=== PATIENT | male | born 1985 | race African-American/Black ===

== ENCOUNTER 2016-12-25 14:13 | Emergency (ER) | payer BC ==
[~2016-12-25] VITALS: Ht 185.4 cm; Wt 77.1 kg
[~2016-12-25 14:13] MED LIST: CYCL10TA2 PO; ONDA4TAB10 SL
[2016-12-25 17:30] VITALS: BP 143/75
[2016-12-25 17:35] LABS: BILIRUBIN,URINE NEGATIVE (NEG); GLUCOSE,URINE NEGATIVE (NEG); NITRITE,URINE NEGATIVE (NEG); PH,URINE 7.5; PROTEIN,URINE NEGATIVE (NEG-TRACE)
[2016-12-25 17:46] LABS: BASO # 0.1 x10^3/uL (0.0-0.2); BASO % 1 % (0-3); EOS % 2 % (0-3); HEMOGLOBIN 13.1 g/dL (13.0-17.5); LYMPH # 3.1 x10^3/uL (1.0-4.8); LYMPH % 36 % (24-48); MEAN CORPUSCULAR HEMOGLOBIN 30 pg (25-35); MEAN CORPUSCULAR HGB CONC 33 g/dL (31-37); MEAN CORPUSCULAR VOLUME 92 fL (79-100); MONO % 5 % (0-9); NEUT % 56 % (31-73); PLATELET COUNT 191 x10^3/uL (140-400); RED BLOOD COUNT 4.33 x10^6/uL (4.30-5.70); RED CELL DISTRIBUTION WIDTH 14.1 % (11.5-14.5); WHITE BLOOD COUNT 8.5 x10^3/uL (4.0-11.0)
[2016-12-25 17:53] LABS: CALCIUM 9.4 mg/dL (8.5-10.1); CREATININE 0.9 mg/dL (0.7-1.3); GFR 117.6; POTASSIUM 4.2 mmol/L (3.5-5.1)
[2016-12-25 17:59] LABS: ALBUMIN 3.8 g/dL (3.4-5.0); ALBUMIN/GLOBULIN RATIO 0.9 (1.0-1.7); TOTAL BILIRUBIN 0.2 mg/dL (0.2-1.0); TOTAL PROTEIN 7.9 g/dL (6.4-8.2)
[2016-12-25 18:04] LABS: BACTERIA,URINE 0 /HPF (0-FEW); SQUAMOUS EPITHELIAL CELL,UR OCC /LPF
[2016-12-25 18:05] LABS: TRICHOMONAS,URINE PRESENT
[2016-12-25] MEDS ORDERED: DOXY100T PO (18:28)
--- NOTE | 2016-12-25 18:28 | PHYS DOC ---
Past Medical History Past Medical History: No Pertinent History, Bronchitis Additional Past Medical Histor: pt denies any Past Surgical History: No Surgical History Additional Past Surgical Histo: pt denies any Alcohol Use: None Drug Use: None Adult General Chief Complaint Chief Complaint: BLOOD IN URINE HPI HPI Patient is a 31 year old gentleman who presents here today complaining of hematuria and dysuria OLGA-3 morning. Patient also complains of some discomfort in his left flank region. Patient has no history of hypertension diabetes liver kidney or lung problems. Patient reports he does smoke. Occasional alcohol no drugs. Patient ramses he is allergic to penicillin and aspirin. Patient has had no surgeries. Patient denies any fevers shaking chills nausea vomiting diarrhea cough or URI symptoms. Patient denies any penile discharge. Patient reports he does have some blood a discharge that is noticed occasionally. Patient has any testicular pain or abdominal pain. Patient reports he is tolerating by mouth's well. Exam the ER was unremarkable. Patient's abdominal exam is normal. Patient's U exam was normal. Patient is alert awake and oriented 3. Patient's abdomen is soft nontender no rebound or guarding. Patient has some mild tenderness to palpation to his left flank. Patient is resting comfortably watching TV laughing and kidding around with his girlfriend. Patient does not appear to have any discomfort or pain at this time. Patient's workup in the ER was unremarkable. Except for a UA that showed Trichomonas as well as WBCs in his urine. I believe that the hematuria the patient is speaking of his likely drainage from a STD. We will go ahead and give the patient a shot of Rocephin IM, Doxy and Flagyl. Patient be discharged home in stable condition with strict instructions to follow-up with his primary care doctor without department for further reevaluation and management of his hematuria if it continues. Review of Systems Review of Systems Constitutional: Denies fever or chills [] Eyes: Denies change in visual acuity, redness, or eye pain [] HENT: Denies nasal congestion or sore throat [] All other review systems are negative except as documented in the history of present illness portion Allergies Allergies Allergies Coded Allergies Type Severity Reaction Last Updated Verified Penicillins Allergy Intermediate 08/20/15 Yes aspirin Allergy Intermediate 08/20/15 Yes peanut Allergy Intermediate 08/20/15 Yes Physical Exam Physical Exam Constitutional: Well developed, well nourished, no acute distress, non-toxic appearance. [] HENT: Normocephalic, atraumatic, bilateral external ears normal, oropharynx moist, no oral exudates, nose normal. [] Eyes: PERRLA, EOMI, conjunctiva normal, no discharge. [] Neck: Normal range of motion, no tenderness, supple, no stridor. [] Cardiovascular:Heart rate regular rhythm, no murmur [] Lungs & Thorax: Bilateral breath sounds clear to auscultation [] Abdomen: Bowel sounds normal, soft, no tenderness, no masses, no pulsatile masses. [] Skin: Warm, dry, no erythema, no rash. [] Back: Mild tenderness to palpation to his left flank Extremities: No tenderness, no cyanosis, no clubbing, ROM intact, no edema. [] Neurologic: Alert and oriented X 3, normal motor function, normal sensory function, no focal deficits noted. [] Psychologic: Affect normal, judgement normal, mood normal. [] Current Patient Data Vital Signs Vital Signs Date Time Temp Pulse Resp B/P Pulse Ox O2 Delivery O2 Flow Rate FiO2 12/25/16 16:45 98.5 80 22 147/76 99 Room Air 98.5 Lab Values Laboratory Tests Test 12/25/16 15:55 12/25/16 17:34 Urine Color Yellow Urine Clarity Clear Urine pH 7.5 Urine Specific Holl[place] 1.015 Urine Protein Negativemg/dL (NEG-TRACE) Urine Glucose (UA) Negativemg/dL (NEG) Urine Ketones (Stick) Negativemg/dL (NEG) Urine Blood Moderate (NEG) Urine Nitrite Negative (NEG) Urine Bilirubin Negative (NEG) Urine Urobilinogen Dipstick 1.0mg/dL (0.2 mg/dL) Urine Leukocyte Esterase Large (NEG) Urine RBC 1-2/HPF (0-2) Urine WBC 11-20/HPF (0-4) Urine Squamous Epithelial Cells Occ/LPF Urine Bacteria 0/HPF (0-FEW) Urine Mucus Slight/LPF Urine Trichomonas Present White Blood Count 8.5x10^3/uL (4.0-11.0) Red Blood Count 4.33x10^6/uL (4.30-5.70) Hemoglobin 13.1g/dL (13.0-17.5) Hematocrit 40.0% (39.0-53.0) Mean Corpuscular Volume 92fL (79-100) Mean Corpuscular Hemoglobin 30pg (25-35) Mean Corpuscular Hemoglobin Concent 33g/dL (31-37) Red Cell Distribution Width 14.1% (11.5-14.5) Platelet Count 191x10^3/uL (140-400) Neutrophils (%) (Auto) 56% (31-73) Lymphocytes (%) (Auto) 36% (24-48) Monocytes (%) (Auto) 5% (0-9) Eosinophils (%) (Auto) 2% (0-3) Basophils (%) (Auto) 1% (0-3) Neutrophils # (Auto) 4.7x10^3uL (1.8-7.7) Lymphocytes # (Auto) 3.1x10^3/uL (1.0-4.8) Monocytes # (Auto) 0.5x10^3/uL (0.0-1.1) Eosinophils # (Auto) 0.2x10^3/uL (0.0-0.7) Basophils # (Auto) 0.1x10^3/uL (0.0-0.2) Sodium Level 145mmol/L (136-145) Potassium Level 4.2mmol/L (3.5-5.1) Chloride Level 107mmol/L (98-107) Carbon Dioxide Level 28mmol/L (21-32) Anion Gap 10 (6-14) Blood Urea Nitrogen 14mg/dL (8-26) Creatinine 0.9mg/dL (0.7-1.3) Estimated GFR (Cockcroft-Gault) 117.6 BUN/Creatinine Ratio 16 (6-20) Glucose Level 85mg/dL (70-99) Calcium Level 9.4mg/dL (8.5-10.1) Total Bilirubin 0.2mg/dL (0.2-1.0) Aspartate Amino Transferase (AST) 12U/L (15-37) L Alanine Aminotransferase (ALT) 20U/L (16-63) Alkaline Phosphatase 96U/L (46-116) Total Protein 7.9g/dL (6.4-8.2) Albumin 3.8g/dL (3.4-5.0) Albumin/Globulin Ratio 0.9 (1.0-1.7) L Laboratory Tests 12/25/16 17:34 Laboratory Tests 12/25/16 17:34 EKG EKG [] Radiology/Procedures Radiology/Procedures [] Course & Med Decision Making Course & Med Decision Making Pertinent Labs and Imaging studies reviewed. (See chart for details) [] Dragon Disclaimer Dragon Disclaimer This electronic medical record was generated, in whole or in part, using a voice recognition dictation system. Departure Departure Impression: Primary Impression: Trichomonas infection Additional Impressions: STD (male) Hematuria Disposition: 01 HOME, SELF-CARE Condition: IMPROVED Referrals: NO PCP (PCP) Patient Instructions: Hematuria, Adult, Sexually Transmitted Disease, Easy-to- Read, Trichomoniasis Scripts Doxycycline Hyclate 100 Mg Tablet1 Tab PO BID #14 TAB Prov:CANDE BRIGHT MD 12/25/16 Problem Qualifiers CANDE BRIGHT MD Dec 25, 2016 18:28
[2016-12-25] MEDS ORDERED: CEFTRIAXONE IM 250 MG VIAL. IM ONE (18:30)
[2016-12-25] MEDS ORDERED: METRONIDAZOLE 500 MG TABLET. PO ONE (18:30)
== END 2016-12-25 19:20 | disposition home or self-care (01) ==
LOC: ER 14:13
DX: R31.9 Hematuria, unspecified (principal); A64 Unspecified sexually transmitted disease; A59.9 Trichomoniasis, unspecified; Z88.0 Allergy status to penicillin; Z88.6 Allergy status to analgesic agent; Z91.010 Allergy to peanuts
CPT/HCPCS: 36415; 80053; 81001; 85027; 87086; 96372; 99284; J0696

== ENCOUNTER 2017-11-08 17:36 | Emergency (ER) | payer BC | END 2017-11-08 19:08 | disposition home or self-care (01) | LOC: ER 17:36 | DX: M25.562 Pain in left knee (principal); Z88.0 Allergy status to penicillin; Z88.6 Allergy status to analgesic agent; Z91.010 Allergy to peanuts | CPT/HCPCS: 73562; 99284 ==

== ENCOUNTER 2020-04-15 14:10 | Emergency (ER) | payer BC ==
[~2020-04-15] VITALS: Ht 185.4 cm; Wt 86.0 kg
[~2020-04-15 14:10] MED LIST changes: +DOXY100T PO; +TRAM50TA PO
[2020-04-15] MEDS ORDERED: ONDA4TAB12 PO (15:13)
[2020-04-15] MEDS ORDERED: PRED20TA PO (15:13)
[2020-04-15] MEDS ORDERED: DIPH25CA58 PO (15:13)
[2020-04-15] MEDS ORDERED: FAMO-63 PO (15:13)
--- NOTE | 2020-04-15 15:14 | PHYS DOC ---
Past Medical History Past Medical History: Bronchitis Past Surgical History: No Surgical History Smoking Status: Current Every Day Smoker Alcohol Use: None Drug Use: None General Adult EDM: Chief Complaint: ALLERGIC REACTION HPI: HPI: Patient is a 34 year old presents with report of pruritic rash to trunk and extremities and sensation there is "something in his throat "which started yesterday. Patient did have 2 episodes of vomiting yesterday prior to symptoms starting. Denies any known exposure. Denies fever or chills. Denies new medications, soaps, shampoos, detergents, or other allergen exposure. Patient reports he took a Benadryl at noon today. Patient reports symptoms have s omewhat improved but still is having some itching and now with some upper lip swelling. Denies problems breathing or talking. Denies tongue swelling. Review of Systems: Review of Systems: Constitutional: Denies fever or chills Eyes: Denies redness or eye pain HENT: Denies nasal congestion or sore throat; denies tongue swelling; reports left upper lip swelling and sensation of "something in his throat " Respiratory: Denies cough or shortness of breath or wheezing Cardiovascular: Denies chest pain or palpitations GI: Denies abdominal pain; reports nausea and vomiting : Denies dysuria or hematuria Musculoskeletal: Denies back pain or joint pain Integument: Reports rash and itching Neurologic: Denies headache, focal weakness or sensory changes Complete systems were reviewed and found to be within normal limits, except as documented in this note. Current Medications: Current Medications Medications (Trade) Dose Ordered Sig/Norma Start Time Stop Time Status Last Admin Dose Admin Dexamethasone Sodium Phosphate (Decadron) 10 mg 1X ONCE 04/15/20 15:30 04/15/20 15:31 Diphenhydramine HCl (Benadryl) 25 mg 1X ONCE 04/15/20 15:30 04/15/20 15:31 Famotidine (Pepcid) 20 mg 1X ONCE 04/15/20 15:30 04/15/20 15:31 Allergies: Allergies: Allergies Coded Allergies Type Severity Reaction Last Updated Verified Penicillins Allergy Intermediate 08/20/15 Yes aspirin Allergy Intermediate 08/20/15 Yes peanut Allergy Intermediate 08/20/15 Yes Physical Exam: PE: Constitutional: Well developed, well nourished, no acute distress, non-toxic appearance HENT: Normocephalic, atraumatic, oropharynx moist, tongue normal, left upper lip with edema Eyes: Conjunctiva normal, no discharge Neck: Normal range of motion, no tenderness, supple, no stridor Cardiovascular: Heart rate normal, regular rhythm Lungs & Thorax: Bilateral breath sounds clear to auscultation, no wheezing, no respiratory distress Abdomen: Soft, no tenderness, no guarding/rebound tenderness/distention Skin: Warm, dry, no erythema, urticarial rash to trunk and extremities Extremities: No tenderness, ROM intact, no edema Neurologic: Alert and oriented X 3, normal motor function, normal sensory function, no focal deficits noted Psychologic: Affect normal, judgment normal EKG: EKG: [] Radiology/Procedures: Radiology/Procedures: [] Course & Med Decision Making: Course & Med Decision Making Patient presents with HPI and physical exam concerning for allergic reaction. Patient noted to have hives on his trunk. No airway compromise. Lungs clear without stridor. Symptomatic treatment provided with ODT Zofran, IM dexamethasone, oral Benadryl, and oral Pepcid. Patient stable for discharge with outpatient follow-up with PCP. Discussed findings and plan with patient and family, who acknowledge understanding and agreement. Yeni Disclaimer: Yeni Disclaimer: This electronic medical record was generated, in whole or in part, using a voice recognition dictation system. Departure Departure Impression: Primary Impression: Allergic reaction Qualified Codes: T78.40XA - Allergy, unspecified, initial encounter Additional Impressions: Hives Nausea Disposition: 01 HOME, SELF-CARE Condition: STABLE Referrals: NO PCP (PCP) Patient Instructions: Hives, [id number], Nausea, Adult, [id number] Scripts Diphenhydramine Hcl (BENADRYL) 25 Mg Capsule 2 CAP PO Q4-6HRS PRN for RASH, #30 CAP 0 Refills Prov: CARMEN LIEBERMAN DO 04/15/20 Famotidine (PEPCID) 20 Mg Tablet 20 MG PO BID for 10 Days, #20 TAB Prov: CARMEN LIEBERMAN DO 04/15/20 Ondansetron (ONDANSETRON ODT) 4 Mg Tab.rapdis 1 TAB PO PRN Q6-8HRS PRN for NAUSEA, #16 TAB Prov: CARMEN LIEBERMAN DO 04/15/20 Prednisone (PREDNISONE) 20 Mg Tablet 2 TAB PO DAILY, #8 TAB Start this prescription tomorrow, Sunday04/16/20 Prov: CARMEN LIEBERMAN DO 04/15/20 Justicifation of Admission Dx: Justifications for Admission: Justification of Admission Dx: N/A CARMEN LIEBERMAN DO Apr 15, 2020 15:13
[2020-04-15] MEDS ORDERED: ONDANSETRON ODT 4 MG TAB.RAPDIS. ONE (15:20)
[2020-04-15] MEDS ORDERED: diphenhydrAMINE HCL 25 MG CAPSULE PO ONE (15:30)
[2020-04-15] MEDS ORDERED: FAMOTIDINE 20 MG TABLET. PO ONE (15:30)
[2020-04-15] MEDS ORDERED: DEXAMETHASONE SOD PHOS 4 MG/ML VIAL IM ONE (15:30)
[2020-04-15] MEDS ORDERED: ONDANSETRON ODT 4 MG TAB.RAPDIS. PO ONE (15:45)
[2020-04-15 16:00] VITALS: BP 125/72
== END 2020-04-15 16:00 | disposition home or self-care (01) ==
LOC: ER 14:10
DX: L50.0 Allergic urticaria (principal); R11.2 Nausea with vomiting, unspecified; F17.200 Nicotine dependence, unspecified, uncomplicated; Z88.0 Allergy status to penicillin; Z91.010 Allergy to peanuts; Z88.6 Allergy status to analgesic agent
CPT/HCPCS: 96372; 99284; J1100; Q0163

== ENCOUNTER 2021-09-15 12:16 | Emergency (ER) | payer OTHER, BC ==
[~2021-09-15] VITALS: Ht 185.4 cm; Wt 99.7 kg
[~2021-09-15 12:16] MED LIST changes: +CYCL10TA19 PO; -CYCL10TA2 PO; +DIPH25CA58 PO; +FAMO-63 PO; +ONDA4TAB12 PO; +PRED20TA PO
[2021-09-15] MEDS ORDERED: fentaNYL PF VIAL 100 MCG/2 ML VIAL IVP ONE ×3 (12:45→13:45)
--- NOTE | 2021-09-15 13:03 | PHYS DOC ---
Past Medical History Past Medical History: Bronchitis Additional Past Medical Histor: pt denies any (GEOVANY RESTREPO APRN) Past Surgical History: No Surgical History Additional Past Surgical Histo: pt denies any (GEOVANY RESTREPO APRN) Smoking Status: Current Every Day Smoker Additional Information: 1/2 ppd Alcohol Use: Rarely Drug Use: None (GEOVANY RESTREPO APRN) General Adult EDM: Chief Complaint: ANKLE PROBLEM HPI: HPI: Patient is a 35-year-old male who presents to the emergency department with a right ankle injury and pain and swelling. Patient reports he was walking up a ramp when he slipped and rolled his ankle and heard a pop at 1130 today. Pain does not radiate. He is unable to bear weight or ambulate. He rates his pain 10 out of 10. No treatment prior to arrival. Patient reports decreased range of motion of his ankle due to pain, denies any decreased range of motion to his toes, denies any decreased sensation to his extremity. (GEOVANY RESTREPO APRN) Review of Systems: Review of Systems: Musculoskeletal: See HPI Integument: See HPI Neurologic: HPI (GEOVANY RESTREPO APRN) Heart Score: C/O Chest Pain: N/A Risk Factors: Risk Factors: DM, Current or recent (<one month) smoker, HTN, HLP, family history of CAD, obesity. Risk Scores: Score 0 - 3: 2.5% MACE over next 6 weeks - Discharge Home Score 4 - 6: 20.3% MACE over next 6 weeks - Admit for Clinical Observation Score 7 - 10: 72.7% MACE over next 6 weeks - Early Invasive Strategies (GEOVANY RESTREPO APRN) C/O Chest Pain: No (ELIZABETH SPRAGUE DO) Current Medications: Current Medications Medications (Trade) Dose Ordered Sig/[facility] Start Time Stop Time Status Last Admin Dose Admin Fentanyl Citrate (Fentanyl 2ml Vial) 50 mcg 1X ONCE 09/15/21 12:45 09/15/21 12:46 DC 09/15/21 12:55 50 MCG (GEOVANY RESTREPO APRN) Allergies: Allergies: Allergies Coded Allergies Type Severity Reaction Last Updated Verified Penicillins Allergy Intermediate 08/20/15 Yes aspirin Allergy Intermediate itching 09/15/21 Yes peanut Allergy Intermediate 08/20/15 Yes (GEOVANY RESTREPO APRN) Physical Exam: PE: Constitutional: Well developed, well nourished, no acute distress, non-toxic appearance. [] HENT: Normocephalic, atraumatic, bilateral external ears normal, oropharynx moist, no oral exudates, nose normal. [] Eyes: PERRL, EOMI, conjunctiva normal, no discharge. [] Neck: Normal range of motion, no stridor Cardiovascular:Heart rate regular rhythm, no murmur [] Lungs & Thorax: Bilateral breath sounds clear to auscultation [] Abdomen: Bowel sounds normal, soft, no tenderness, no masses, no pulsatile masses. [] Skin: Warm, dry, no erythema, no rash. [] Back: Normal range of motion Extremities: No tenderness, no cyanosis, no clubbing, ROM intact, no edema. Right ankle: Obvious deformity and swelling noted to the medial aspect of patient's right ankle, no open wounds or ecchymosis noted, neuro intact, range of motion of toes intact, limited flexion extension of ankle due to pain Neurologic: Alert and oriented X 3, normal motor function, normal sensory function, no focal deficits noted. [] Psychologic: Affect normal, judgement normal, mood normal. [] (GEOVANY RESTREPO APRN) Current Patient Data: Vital Signs: Vital Signs Date Time Temp Pulse Resp B/P (MAP) Pulse Ox O2 Delivery O2 Flow Rate FiO2 09/15/21 12:55 Room Air 09/15/21 12:16 99.0 80 24 156/80 (105) 100 99.0 (GEOVANY RESTREPO APRN) EKG: EKG: [] (GEOVANY RESTREPO APRN) Radiology/Procedures: Radiology/Procedures: []PROCEDURE: ANKLE RIGHT 3V Study: XR EXAM OF ANKLE_RIGHT 3VIEWS Indication: Ankle injury. Comparison: None. Findings: Anterior more so than medial dislocation of the tibia relative to the talus. Comminuted fracture of the distal tibia with involvement of the medial and posterior malleoli. No displaced fracture of the talus is apparent. Normal configuration of the subtalar joint. No acute fracture seen to involve the midfoot or partially assessed forefoot. Impression: Anterior/medial dislocation of the tibia relative to the talus with comminuted fracturing of the distal tibia with medial and posterior malleolar involvement. Attention on post reduction radiographs to assess for any additional fractures. Electronically signed by: DELROY OVALLES MD (09/15/2021 1:13 PM) [facility] DICTATED and SIGNED BY: DELROY OVALLES MD DATE: 09/15/21 [id number] PROCEDURE: ANKLE RIGHT 3V Study: XR EXAM OF ANKLE_RIGHT 3VIEWS Indication: Status post reduction. Comparison: 09/15/2021 at 1244 hours Findings: Casting material is in place which obscures fine osseous detail. Interval reduction of the tibiotalar dislocation. Longitudinal/oblique fracture extending through the base of the medial malleolus. The fracture cleft at its cephalad aspect measures between 3 and 4 mm in width. Though difficult to ch aracterize, there appears to be an impaction type fracture along the medial margin of the posterior malleolus. Impression: Reduced tibiotalar dislocation. Longitudinal/oblique fracture extending through the base of the medial malleolus and a presumed impaction-type fracture along the medial margin of the posterior malleolus. Electronically signed by: DELROY OVALLES MD (09/15/2021 2:53 PM) [facility] DICTATED and SIGNED BY: DELROY OVALLES MD DATE: 09/15/21 [id number] (GEOVANY RESTREPO APRN) Course & Med Decision Making: Course & Med Decision Making Pertinent Labs and Imaging studies reviewed. (See chart for details) [] Patient presents to the emergency department for right ankle pain following an injury. X-ray was performed that showed Anterior/medial dislocation of the tibia relative to the talus with comminuted fracturing of the distal tibia with medial and posterior malleolar involvement. patient's pain treated in the emergency department. Conscious sedation required to perform a closed reduction of patient's right ankle. Additional pain medication ordered. Sedation medications ordered, conscious sedation protocol for nursing staff performed. Reduction performed by Dr. Sprague. Splint placed. Patient tolerated procedure, he is neurovascularly intact pre and post splint placement, post reduction film obtained which showed reduced tibiotalar disloccation longitudinal/oblique fracture at the base of the medial malleolus and presumed impaction type fracture along medial margin of the posterior malleolus. I discussed patient's findings with Dr. Dan with the orthopedic group at [facility], he agreed to see the patient outpatient, information faxed to the office fax that he provided. Patient phone number was given to office staff to follow-up and set up an outpatient appointment. Patient advised to not bear weight and he was provided crutches and crutch training. I discussed with patient all findings and diagnostic testing as well as the need to follow-up with PCP for further evaluation and treatment or return to the ER if any new or worsening symptoms. Strict return precautions were also discussed at length. Patient voiced understanding and agr eement with the plan. Patient is hemodynamically stable at the time of disposition. (GEOVANY RESTREPO APRN) Course & Med Decision Making This patient was seen by the nurse practitioner. Please see her note for further details. I was asked to assist with moderate sedation and joint reduction. The patient tolerated sedation and reduction very well. He was consented for moderate sedation. Please see associated nursing notes for details regarding this as well as details regarding dosing. I assisted with splint placement after reduction. I viewed the films after reduction. He does appear to have a medial malleolus fracture, but he is dislocation is adequately reduced. He is splinted. He will be followed up by orthopedics. The patient did not sustain any complications during sedation, nor did he sustained any complications during reduction. He tolerated all procedures very well. (ELIZABETH SPRAGUE DO) Dragon Disclaimer: Dragon Disclaimer: This electronic medical record was generated, in whole or in part, using a voice recognition dictation system. (GEOVANY RESTREPO APRN) RISKS/ALTERNATIVES Risks/Alternatives Risks and alternatives of this type of sedation and procedure discussed with: RISK/ALTERNATIVES: Patient (ELIZABETH SPRAGUE DO) H & P ON CHART H & P H & P on chart and reviewed for co-morbid conditions and appropriate labs. H&P ON CHART: Yes (ELIZABETH SPRAGUE DO) STATUS PREG STATUS ASSESSED: N/A (ELIZABETH SPRAGUE DO) MEDS/ALLERGIES REVIEWED Meds/Allergies Reviewed Medications and Allergies including time and route of recently administered narcotics and sedatives. MEDS/ALLERGIES REVIEWED: Yes (ELIZABETH SPRAGUE DO) ASA RATING ASA RATING: I (ELIZABETH SPRAGUE DO) AIRWAY ASSESSMENT Airway Assessment Airway patency, oral function limitations, presence of caps, crowns, dentures, partials, and ability to extend neck assessed. AIRWAY ASSESSMENT: Yes (ELIZABETH SPRAGUE DO) MALLAMPATI SCORE MALLAMPATI SCORE: II (ELIZABETH SPRAGUE DO) PRE-SEDATION ASSESSMENT PRE-SEDATION ASSESSMENT: Yes (ELIZABETH SPRAGUE DO) Joint Reduction Procedure Joint Indication: Joint dislocation, right ankle fracture-dislocation Consent: Consent was obtained. Procedure: The pre-reduction exam showed distal perfusion and neurologic function to be normal.. The patient was placed in the appropriate position. Anesthesia/pain control was achieved utilizing IV fentanyl and IV Versed. Reduction of the right ankle dislocation was performed by dental traction. Post reduction films were obtained and revealed satisfactory reduction. A post- reduction exam revealed distal perfusion and neurologic function to be normal. The affected area was immobilized with a posterior lower extremity splint,U&L splint. The patient tolerated the procedure well. Complications: none. (ELIZABETH SPRAGUE DO) Departure Departure Impression: Primary Impression: Medial malleolar fracture Qualified Codes: S82.51XA - Displaced fracture of medial malleolus of right tibia, initial encounter for closed fracture Disposition: 01 HOME / SELF CARE / HOMELESS Condition: GOOD Referrals: NO PCP (PCP) Patient Instructions: Ankle Fracture Additional Instructions: You were seen in the ER today for a fracture or broken bone. You had a splint placed to help with pain and healing. You will need to follow-up with the orthopedic doctors in the orthopedic clinic as soon as possible. Please see attached information regarding follow-up physician. You are to follow-up with Dr. Dan with orthopedic group at [facility]. I gave him your contact information and you should be receiving a call from the office [facility] to set up a follow-up appointment. You should perform range of motion exercises to prevent stiffness of your joints. Splints help with the pain and can promote healing but immobility can cause chronic pain over time. Please refer to these attached instructions regarding range of motion exercises. Keep the splint clean and dry avoid getting it wet. If the splint gets wet you will need to have it replaced. You should use ice and elevation to help with the swelling and pain. For the first 24 hours apply ice 20 minutes on 20 minutes off 4 times per day. Ensure that ice is in a plastic bag as to not get the splint wet. Do not bear weight, use crutches for ambulation. You may take NSAID medications ( ibuprofen, naproxen) to help with the pain. For your severe pain, you can take hydrocodone and Tylenol tablets that you were given. This medication may cause sedation so do not take any need to be alert, driving a vehicle or with alcohol. Please return to the emergency department if you develop any of the following symptoms: Increasing pain that does not improve with treatments. New numbness or tingling Warmth, redness, skin discoloration, skin breakdown, drainage from under splint or near splinted area. Increasing inability to move your extremity or digits. Foul odor coming from splint Fevers or chills Nausea or vomiting Persistent lightheadedness We would be happy to see you for any other concerning symptoms regarding your splinted extremity. Scripts Hydrocodone Bit/Acetaminophen (HYDROCODONE-APAP 5-325 ) 1 Tab Tablet 1 TAB PO PRN Q6HRS PRN for PAIN for 2 Days, #8 TAB 0 Refills Prov: GEOVANY RESTREPO APRN 09/15/21 GEOVANY RESTREPO APRN Sep 15, 2021 13:03 ELIZABETH SPRAGUE DO Sep 16, 2021 20:07
--- NOTE | 2021-09-15 13:15 | RAD ---
Study: XR EXAM OF ANKLE_RIGHT 3VIEWS Indication: Ankle injury. Comparison: None. Findings: Anterior more so than medial dislocation of the tibia relative to the talus. Comminuted fracture of t he distal tibia with involvement of the medial and posterior malleoli. No displaced fracture of the t alus is apparent. Normal configuration of the subtalar joint. No acute fracture seen to involve the m idfoot or partially assessed forefoot. Impression: Anterior/medial dislocation of the tibia relative to the talus with comminuted fracturing of the dist al tibia with medial and posterior malleolar involvement. Attention on post reduction radiographs to assess for any additional fractures. Electronically signed by: DELROY OVALLES MD (09/15/2021 1:13 PM) MICHELLE
[2021-09-15] MEDS ORDERED: MIDAZOLAM HCL/PF 5 MG/5 ML VIAL. NS ONE (13:45)
[2021-09-15] MEDS ORDERED: ONDANSETRON PF 4 MG/2 ML VIAL. IVP ONE (13:45)
[2021-09-15 13:58] VITALS: BP 158/84
--- NOTE | 2021-09-15 14:55 | RAD ---
Study: XR EXAM OF ANKLE_RIGHT 3VIEWS Indication: Status post reduction. Comparison: 09/15/2021 at 1244 hours Findings: Casting material is in place which obscures fine osseous detail. Interval reduction of the tibiotalar dislocation. Longitudinal/oblique fracture extending through the base of the medial malleolus. The fracture cleft at its cephalad aspect measures between 3 and 4 mm in width. Though difficult to characterize, there appears to be an impaction type fracture along the medial margin of the posterior malleolus. Impression: Reduced tibiotalar dislocation. Longitudinal/oblique fracture extending through the base of the media l malleolus and a presumed impaction-type fracture along the medial margin of the posterior malleolus . Electronically signed by: DELROY OVALLES MD (09/15/2021 2:53 PM) [facility]
[2021-09-15] MEDS ORDERED: HYDR-2761 PO (15:16)
[2021-09-15 16:32] VITALS: BP 128/70
== END 2021-09-15 16:36 | disposition home or self-care (01) ==
LOC: ER 12:16
DX: S82.51XA Displaced fracture of medial malleolus of right tibia, initial encounter for closed fracture (principal); F17.200 Nicotine dependence, unspecified, uncomplicated; Z88.0 Allergy status to penicillin; Z88.6 Allergy status to analgesic agent; Z91.010 Allergy to peanuts; X50.9XXA Other and unspecified overexertion or strenuous movements or postures, initial encounter; Y93.01 Activity, walking, marching and hiking; Y92.89 Other specified places as the place of occurrence of the external cause; Y99.8 Other external cause status
CPT/HCPCS: 27762; 73610; 96374; 99152; 99285; J2250; J2405; J3010